=== PATIENT | male | born 1995 | race Caucasian/White ===

== ENCOUNTER 2019-04-27 23:51 | Emergency (ER) | payer SELFPAY ==
[~2019-04-27] VITALS: Ht 193 cm; Wt 113.4 kg
[2019-04-28] MEDS ORDERED: IOHEXOL 300 MG/ML 100ML BOTTLE IJ ONE (00:33)
[2019-04-28 01:00] VITALS: BP 105/47
[2019-04-28 03:01] LABS: Albumin 3.7 g/dL (3.4-5.0); Calcium 7.8 mg/dL (8.5-10.1); Potassium 3.8 mmol/L (3.5-5.1)
[2019-04-28 03:09] LABS: Basophils # (auto) 0.1 uL; Basophils % (auto) 0.6 % (0.0-2.0); Eosinophils # (auto) 0.1 uL; Eosinophils % (auto) 0.8 % (0.0-7.0); Hematocrit 42.7 % (41.0-53.0); Lymphocytes # (auto) 1.8 uL; Lymphocytes % (auto) 14.4 % (10.0-50.0); Mean Corpuscular Hgb Conc. 35.1 g/dL (32.0-36.0); Mean Corpuscular Volume 91.1 fL (80.0-100.0); Monocytes % (auto) 8.1 % (0.0-12.0); Neutrophils # (auto) 9.5 uL; Neutrophils % (auto) 76.1 % (37.0-80.0); Nucleated Red Blood Cells % 0.1 %; Platelet Count (auto) 334 10^3/uL (140-450); Red Blood Cells 4.69 10^6/uL (4.5-5.90); White Blood Cell 12.5 10^3/uL (4.4-10.8)
[2019-04-28 03:10] LABS: Bilirubin, Total 0.4 mg/dL (0.2-1.0); Total Protein 6.9 g/dL (6.4-8.2)
== END 2019-04-28 03:17 | disposition home or self-care (01) ==
LOC: ER 23:58
DX: S82.832A Other fracture of upper and lower end of left fibula, initial encounter for closed fracture (principal); R51 Headache; V43.52XA Car driver injured in collision with other type car in traffic accident, initial encounter; Y93.89 Activity, other specified; Y99.8 Other external cause status; Y92.410 Unspecified street and highway as the place of occurrence of the external cause
CPT/HCPCS: 29515; 36415; 70450; 71260; 72125; 73610; 74177; 80053; 80320; 85025; 99284; Q9967

== ENCOUNTER 2021-07-24 10:52 | Emergency (ER) | payer MEDICAID, OTHER ==
[~2021-07-24] VITALS: Ht 193 cm; Wt 116.1 kg
[2021-07-24 13:35] VITALS: BP 143/95
[2021-07-24] MEDS ORDERED: ACET-1158 PO (14:40)
[2021-07-24] MEDS ORDERED: BENZ100C19 PO (14:40)
[2021-07-24] MEDS ORDERED: AMOX-277 PO (14:40)
[2021-07-24] MEDS ORDERED: PRED20TA2 PO (14:40)
[2021-07-24] MEDS ORDERED: cefTRIAXone SOD 1,000 MG VL IM ONE (14:45)
[2021-07-24] MEDS ORDERED: methylPREDNISolone SOD SUCC 125 MG/2 ML VL IM ONE (14:45)
[2021-07-24] MEDS ORDERED: LIDOCAINE 1% HCL (LOCAL ANESTH.) INJ 20ML MDV ONE (14:45)
[2021-07-24] MEDS ORDERED: ONDANSETRON ODT 4 MG TAB PO ONE (15:00)
[2021-07-24] MEDS ORDERED: LIDOCAINE 1% HCL (LOCAL ANESTH.) INJ 20ML MDV ID ONE (15:00)
== END 2021-07-24 14:50 | disposition home or self-care (01) ==
LOC: ER 10:52
DX: J06.9 Acute upper respiratory infection, unspecified (principal); Z20.822 Contact with and (suspected) exposure to COVID-19
CPT/HCPCS: 36415; 71046; 87426; 96372; 99284; J0696; J2001; J2930; Q0162